=== PATIENT | male | born 1960 | race Caucasian/White ===

== ENCOUNTER 2016-12-14 08:17 | Emergency (ER) | payer SELFPAY ==
[~2016-12-14] VITALS: Ht 170.2 cm; Wt 72.0 kg
[2016-12-14] MEDS ORDERED: PHEN-460 PO (08:28)
[2016-12-14] MEDS ORDERED: PHENYTOIN SODIUM 100 MG ER CAPSULE PO ONE (09:30)
[2016-12-14] MEDS ORDERED: LORazepam 1 MG TABLET PO ONE (09:30)
[2016-12-14 11:48] VITALS: BP 147/97
== END 2016-12-14 11:51 | disposition home or self-care (01) ==
LOC: EMS 08:19
DX: G40.909 Epilepsy, unspecified, not intractable, without status epilepticus (principal)
CPT/HCPCS: 70450; 99285